=== PATIENT | male | born 1955 | race Caucasian/White ===

== ENCOUNTER 2016-08-22 10:05 | Inpatient (IN) | payer BC ==
[~2016-08-22] VITALS: Ht 172.7 cm; Wt 95.3 kg
[2016-08-22] MEDS ORDERED: TOPROL XL200 MG PO (11:07)
[2016-08-22] MEDS ORDERED: SIMVASTATIN40 MG PO (11:07)
[2016-08-22] MEDS ORDERED: OMEPRAZOLE40 M1 PO (11:08)
[2016-08-22] MEDS ORDERED: ASPIR 8181 M1 PO (11:08)
[2016-08-22] MEDS ORDERED: PRINIVIL20 MG PO (11:08)
[2016-08-22 11:25] LABS: CHLORIDE 101 mEq/L (99-109); POTASSIUM 4.8 mEq/L (3.7-5.4); SODIUM 139 mEq/L (136-147)
[2016-08-22 11:27] LABS: GLUCOSE 137 mg/dL (70-99)
[2016-08-22 11:29] LABS: ANION GAP 14 MEQ/L (2-14); D-DIMER ELISA 0.69 mg/L FEU (< 0.57); INTER. NORMALIZED RATIO 1.3; PROTHROMBIN TIME 13.2 (9.2-11.2); PTT 24.7 (25-32)
[2016-08-22 11:31] LABS: GFR ESTIMATE (CALCULATED) > 59 mL/min/
[2016-08-22 11:32] LABS: UREA NITROGEN (BUN) 8 mg/dL (9-23)
[2016-08-22 11:38] LABS: TROP-I INTERPRETATION NEGATIVE; TROPONIN-I 0.01 ng/mL (0.0-0.30)
[2016-08-22 11:49] LABS: EOSINOPHIL (%) 0 % (0-5); HEMATOCRIT 48.4 % (38.0-50.0); IMMATURE GRANULOCYTE (%) 0.8 % (0.0-0.7); IMMATURE GRANULOCYTE COUNT 0.1 K/uL; INSTRUMENT ABS NEUTROPHIL CT 16.6 K/uL; LYMPHOCYTE COUNT 0.7 K/uL (1.0-2.8); MCH 30.1 PG (29.0-34.0); MCHC 33.7 G/DL (30.0-36.0); MCV 89.5 FL (86-99); MEAN PLAT.VOLUME 11.7 uM^3 (9.0-12.4); MONOCYTE (%) 6.5 % (3-12); MONOCYTE COUNT 1.2 K/uL (0-0.8); NEUTROPHIL (%) 89.1 % (45-76); NEUTROPHIL COUNT 16.6 K/uL (1.8-6.4); PLATELET COUNT 173 K/uL (156-360); RBC DIS.WIDTH-CV 13.5 % (11.8-14.6); RBC DIS.WIDTH-SD 44.2 % (39-53); RED BLOOD COUNT 5.41 M/uL (4.00-5.50); WHITE BLOOD COUNT 18.6 K/uL (4.1-10.2)
[2016-08-22 13:20] VITALS: BP 124/84
[2016-08-22 14:20] VITALS: BP 124/84
[2016-08-22 16:41] VITALS: BP 140/79
[2016-08-22 17:32] LABS: TROP-I INTERPRETATION NEGATIVE; TROPONIN-I 0.04 ng/mL (0.0-0.30)
[2016-08-22 22:37] VITALS: BP 127/71
[2016-08-23 01:45] LABS: TROP-I INTERPRETATION NEGATIVE; TROPONIN-I < 0.01 ng/mL (0.0-0.30)
[2016-08-23 04:00] VITALS: BP 132/74
[2016-08-23 05:08] VITALS: BP 131/76
[2016-08-23 06:06] LABS: HEMATOCRIT 42.5 % (38.0-50.0); MCH 31.4 PG (29.0-34.0); MCHC 34.8 G/DL (30.0-36.0); MEAN PLAT.VOLUME 11.7 uM^3 (9.0-12.4); PLATELET COUNT 157 K/uL (156-360); RBC DIS.WIDTH-CV 13.8 % (11.8-14.6); RBC DIS.WIDTH-SD 45.7 % (39-53); RED BLOOD COUNT 4.72 M/uL (4.00-5.50); WHITE BLOOD COUNT 15.6 K/uL (4.1-10.2)
[2016-08-23 06:35] LABS: ANION GAP 9 MEQ/L (2-14); CHLORIDE 104 MEQ/L (99-109); GFR ESTIMATE (CALCULATED) > 59 mL/min/; GLUCOSE 124 mg/dL (70-99); POTASSIUM 4.4 MEQ/L (3.7-5.4); SAMPLE HEMOLYSIS CHECK 0; SAMPLE ICTERIC CHECK 0; SAMPLE LIPEMIA CHECK 0; SODIUM 138 MEQ/L (136-147); UREA NITROGEN (BUN) 12 mg/dL (9-23)
[2016-08-23 07:15] VITALS: BP 138/72
[2016-08-23 08:53] LABS: INTERNAL CONTROL VALID? YES
[2016-08-23 15:00] VITALS: BP 126/61
[2016-08-23 22:35] VITALS: BP 166/90
[2016-08-24 06:32] LABS: HEMATOCRIT 44.6 % (38.0-50.0); MCH 30.3 PG (29.0-34.0); MCHC 33.4 G/DL (30.0-36.0); MCV 90.7 FL (86-99); MEAN PLAT.VOLUME 11.7 uM^3 (9.0-12.4); PLATELET COUNT 166 K/uL (156-360); RBC DIS.WIDTH-CV 14.1 % (11.8-14.6); RBC DIS.WIDTH-SD 47.5 % (39-53); RED BLOOD COUNT 4.92 M/uL (4.00-5.50); WHITE BLOOD COUNT 16.3 K/uL (4.1-10.2)
[2016-08-24 07:00] VITALS: BP 160/84
[2016-08-24 07:51] LABS: ANION GAP 9 MEQ/L (2-14); CHLORIDE 103 MEQ/L (99-109); GFR ESTIMATE (CALCULATED) > 59 mL/min/; POTASSIUM 4.5 MEQ/L (3.7-5.4); SAMPLE HEMOLYSIS CHECK 0; SAMPLE ICTERIC CHECK 0; SAMPLE LIPEMIA CHECK 0; SODIUM 138 MEQ/L (136-147); UREA NITROGEN (BUN) 17 mg/dL (9-23)
[2016-08-24 07:52] LABS: GLUCOSE 88 mg/dL (70-99)
[2016-08-24 14:43] VITALS: BP 144/69
[2016-08-24 22:45] VITALS: BP 139/72
[2016-08-25 06:52] VITALS: BP 146/69
[2016-08-25 07:29] LABS: HEMATOCRIT 45.4 % (38.0-50.0); MCH 30.1 PG (29.0-34.0); MCHC 33.5 G/DL (30.0-36.0); MCV 89.9 FL (86-99); MEAN PLAT.VOLUME 11.6 uM^3 (9.0-12.4); PLATELET COUNT 175 K/uL (156-360); RBC DIS.WIDTH-CV 13.8 % (11.8-14.6); RBC DIS.WIDTH-SD 45.6 % (39-53); RED BLOOD COUNT 5.05 M/uL (4.00-5.50); WHITE BLOOD COUNT 11.7 K/uL (4.1-10.2)
[2016-08-25] MEDS ORDERED: AUGMENTIN875 MG PO (10:25)
[2016-08-25] MEDS ORDERED: MUCINEX600 MG PO (10:31)
[2016-08-25] MEDS ORDERED: VENTOLIN HFA18 GM IH (10:32)
== END 2016-08-25 12:57 | disposition home or self-care (01) | DRG 193 ==
LOC: EME 10:05 → EDOF 13:21 → 5EAST 13:21
PROVIDERS: Emergency Medicine; Hospitalist; Internal Medicine
DX: J18.1 Lobar pneumonia, unspecified organism (principal); J96.01 Acute respiratory failure with hypoxia; J90 Pleural effusion, not elsewhere classified; I25.10 Atherosclerotic heart disease of native coronary artery without angina pectoris; I10 Essential (primary) hypertension; E78.2 Mixed hyperlipidemia; K21.9 Gastro-esophageal reflux disease without esophagitis; K44.9 Diaphragmatic hernia without obstruction or gangrene; F17.210 Nicotine dependence, cigarettes, uncomplicated; E66.9 Obesity, unspecified; Z68.31 Body mass index [BMI] 31.0-31.9, adult; I25.2 Old myocardial infarction
CPT/HCPCS: 71010; 71275; 80048; 83605; 83880; 84484; 85025; 85027; 85379; 85610; 85730; 87040; 87070; 87205; 87449; 93005; 94640; 94640 76; 94760; 94799; 99281; 99285; J0456; J0696; J1650; J2930; J7030; J7050

== ENCOUNTER 2016-09-11 11:13 | Inpatient (IN) | payer BC ==
[~2016-09-11] VITALS: Ht 172.7 cm; Wt 97.8 kg
[~2016-09-11 11:13] MED LIST: ASPIR 8181 M1 PO; AUGMENTIN875 MG PO; MUCINEX600 MG PO; OMEPRAZOLE40 M1 PO; PRINIVIL20 MG PO; SIMVASTATIN40 MG PO; TOPROL XL200 MG PO; VENTOLIN HFA18 GM IH
[2016-09-11 11:57] LABS: HEMATOCRIT 46.2 % (38.0-50.0); MCH 30.3 PG (29.0-34.0); MCHC 34.4 G/DL (30.0-36.0); MCV 88.2 FL (86-99); MEAN PLAT.VOLUME 12.1 uM^3 (9.0-12.4); PLATELET COUNT 144 K/uL (156-360); RBC DIS.WIDTH-SD 45.3 % (39-53); RED BLOOD COUNT 5.24 M/uL (4.00-5.50); WHITE BLOOD COUNT 10.7 K/uL (4.1-10.2)
[2016-09-11 12:08] LABS: CHLORIDE 104 mEq/L (99-109); POTASSIUM 4.6 mEq/L (3.7-5.4); SODIUM 137 mEq/L (136-147)
[2016-09-11 12:09] LABS: GLUCOSE 108 mg/dL (70-99)
[2016-09-11 12:11] LABS: ANION GAP 11 MEQ/L (2-14)
[2016-09-11 12:13] LABS: GFR ESTIMATE (CALCULATED) > 59 mL/min/
[2016-09-11 12:14] LABS: UREA NITROGEN (BUN) 8 mg/dL (9-23)
[2016-09-11 12:17] LABS: TROP-I INTERPRETATION NEGATIVE; TROPONIN-I < 0.01 ng/mL (0.0-0.30)
[2016-09-11] MEDS ORDERED: MUCINEX600 MG PO (14:04)
[2016-09-11 17:09] VITALS: BP 143/79
[2016-09-11 21:14] LABS: TROP-I INTERPRETATION NEGATIVE; TROPONIN-I < 0.01 ng/mL (0.0-0.30)
[2016-09-11 22:45] VITALS: BP 140/72
[2016-09-12 03:27] VITALS: BP 132/61
[2016-09-12 07:13] LABS: TROP-I INTERPRETATION NEGATIVE; TROPONIN-I < 0.01 ng/mL (0.0-0.30)
[2016-09-12 08:34] VITALS: BP 138/64
[2016-09-12 15:42] VITALS: BP 132/61
[2016-09-12 18:59] VITALS: BP 126/60
[2016-09-12 22:44] VITALS: BP 103/57
[2016-09-13 03:06] VITALS: BP 116/57
[2016-09-13 06:47] VITALS: BP 133/69
[2016-09-13 07:19] LABS: HEMATOCRIT 41.9 % (38.0-50.0); MCH 30.6 PG (29.0-34.0); MCHC 33.9 G/DL (30.0-36.0); MCV 90.3 FL (86-99); MEAN PLAT.VOLUME 11.9 uM^3 (9.0-12.4); PLATELET COUNT 130 K/uL (156-360); RBC DIS.WIDTH-CV 14.6 % (11.8-14.6); RBC DIS.WIDTH-SD 48.5 % (39-53); RED BLOOD COUNT 4.64 M/uL (4.00-5.50); WHITE BLOOD COUNT 17.2 K/uL (4.1-10.2)
[2016-09-13 07:31] LABS: ANION GAP 9 MEQ/L (2-14); CHLORIDE 105 MEQ/L (99-109); GFR ESTIMATE (CALCULATED) > 59 mL/min/; GLUCOSE 146 mg/dL (70-99); POTASSIUM 4.1 MEQ/L (3.7-5.4); SAMPLE HEMOLYSIS CHECK 0; SAMPLE ICTERIC CHECK 0; SAMPLE LIPEMIA CHECK 0; SODIUM 138 MEQ/L (136-147); UREA NITROGEN (BUN) 13 mg/dL (9-23)
[2016-09-13 14:15] LABS: BASE EXCESS -1.8 mEq/L (-3 to +3); BICARBONATE 22.2 mEq/L (22-26); CARBOXY HGB 2.2 % (0-5); METHEMOGLOBIN 1.9 % (0-1.5); PCO2 35 mm Hg (35-45); PO2 59 mm Hg (80-100); pH 7.41 (7.35-7.45)
[2016-09-13 14:16] LABS: COMMENTS - BLOOD GASES A+C+; FI02 21 %; SITE RR
[2016-09-13 16:07] VITALS: BP 131/74
[2016-09-13 22:40] VITALS: BP 102/53
[2016-09-14 06:38] LABS: HEMATOCRIT 43.7 % (38.0-50.0); MEAN PLAT.VOLUME 11.5 uM^3 (9.0-12.4); PLATELET COUNT 137 K/uL (156-360); RBC DIS.WIDTH-CV 14.7 % (11.8-14.6); RBC DIS.WIDTH-SD 49.4 % (39-53)
[2016-09-14 07:12] VITALS: BP 148/71
[2016-09-14] MEDS ORDERED: AMOX TR-K CLV1 EAC4 PO (09:14)
[2016-09-14] MEDS ORDERED: PREDNISONE20 MG PO (09:14)
[2016-09-14] MEDS ORDERED: SPIRIVA RESPIMAT4 GM IH (09:14)
[2016-09-14] MEDS ORDERED: ADVAIR HFA120 INHALA IH (09:14)
== END 2016-09-14 11:24 | disposition home or self-care (01) | DRG 192 ==
LOC: EME 11:13 → EDOF 13:40 → 5EAST 16:46
PROVIDERS: Emergency Medicine; Hospitalist; Internal Medicine; Internal Medicine Pulmonary Disease
DX: J44.1 Chronic obstructive pulmonary disease with (acute) exacerbation (principal); J44.0 Chronic obstructive pulmonary disease with (acute) lower respiratory infection; J20.9 Acute bronchitis, unspecified; I25.10 Atherosclerotic heart disease of native coronary artery without angina pectoris; F17.200 Nicotine dependence, unspecified, uncomplicated; E78.2 Mixed hyperlipidemia; I25.2 Old myocardial infarction; K21.0 Gastro-esophageal reflux disease with esophagitis; E66.9 Obesity, unspecified; R09.02 Hypoxemia; Z68.30 Body mass index [BMI] 30.0-30.9, adult; I10 Essential (primary) hypertension
CPT/HCPCS: 36600; 71010; 71250; 80048; 82803; 84484; 85027; 87040; 87070; 87205; 93005; 94640; 94640 76; 94760; 94799; 99202; 99281; 99285; J1650; J1956; J2930; J7030; J7512